=== PATIENT | male | born 1960 | race Caucasian/White ===

== ENCOUNTER 2020-07-23 09:06 | Day surgery (SDC) | payer OTHER ==
[~2020-07-23 09:06] MED LIST: Cefuroxime 10 MG/ML SYRINGE EYELF SCH; Lidocaine 1% PF 2 ML SDV INJECT SCH; Pilocarpine 4% Ophth Soln 15 ML Bot EYELF SCH
[2020-07-23] MEDS: Polymyxin B/Trimethoprim 10 ML Bottle EYELF SCH ×3 (10:12→11:15)
[2020-07-23] MEDS: Brimonidine 0.2% Ophth Soln 5 ML Bottle EYELF SCH ×3 (10:15→11:15)
[2020-07-23] MEDS: Phenylephrine 2.5% Ophth Soln 2 ML Bot EYELF SCH ×5 (10:18→10:53)
[2020-07-23] MEDS: Tropicamide 1% Ophth Soln 15 ML Bottle EYELF SCH ×4 (10:21→10:39)
--- NOTE | 2020-07-23 10:35 | PCM.PREANE ---
Preanesthetic Assessment - Procedure Proposed Procedure: Cataract Extraction with IOL Left Eye - Anesthesia/Transfusion/Family Hx Anesthesia History: Prior Anesthesia Without Reaction Family History of Anesthesia Reaction: No - Review of Systems General: No Symptoms Pulmonary: No Symptoms (Smoker 1 ppd, last cigarette was at 0830) Cardiovascular: No Symptoms Gastrointestinal: No Symptoms Neurological: Headache (Occasional, none today. ) Other: Reports: None - Physical Assessment NPO Status Date: 07/22/20 NPO Status Time: 21:00 Weight: 79.379 kg ASA Class: 2 Mental Status: Alert & Oriented x3 Airway Class: Mallampati = 2 Dentition: Reports: Broken Tooth/Teeth (Poor condition), Missing Tooth/Teeth, Caries Thyro-Mental Finger Breadths: 3 Mouth Opening Finger Breadths: 3 ROM/Head Extension: Full Lungs: Clear to Auscultation, Normal Respiratory Effort Cardiovascular: Regular Rate, Regular Rhythm - Allergies Allergies/Adverse Reactions: Allergies Allergy/AdvReac Type Severity Reaction Status Date / Time No Known Allergies Allergy Verified 07/22/20 15:58 - Acknowledgements Anesthesia Type Planned: MAC Pt an Appropriate Candidate for the Planned Anesthesia: Yes Alternatives and Risks of Anesthesia Discussed w Pt/Guardian: Yes Pt/Guardian Understands and Agrees with Anesthesia Plan: Yes PreAnesthesia Questionnaire - HOME MEDS Home Medications: Home Meds . [No Known Home Meds] 07/22/20 [History] - CURRENT (IN HOUSE) MEDS Current Meds: Current Medications Brimonidine Tartrate (Brimonidine 0.2% Ophth Soln 5 Ml Bottle) 0 ml EYELF ASDIRECTED ANDREW Stop: 07/23/20 18:00 Last Admin: 07/23/20 10:15 Dose: 1 drop Documented by: Cefuroxime Sodium (Cefuroxime 10 Mg/Ml Syringe) 0 mg EYELF ASDIRECTED ANDREW Stop: 07/23/20 18:00 Lidocaine HCl (Lidocaine 1% Pf 2 Ml Sdv) 0 ml INJECT ASDIRECTED ANDREW Stop: 07/23/20 18:00 Phenylephrine HCl (Phenylephrine 2.5% Ophth Soln 2 Ml Bot) 0 ml EYELF ASDIRECTED ANDREW Stop: 07/23/20 18:00 Last Admin: 07/23/20 10:28 Dose: 1 drop Documented by: Pilocarpine HCl (Pilocarpine 4% Ophth Soln 15 Ml Bot) 0 ml EYELF ASDIRECTED ANDREW Stop: 07/23/20 18:00 Polymyxin/Trimethoprim Sulfate (Polymyxin B/Trimethoprim 10 Ml Bottle) 0 ml EYELF ASDIRECTED ANDREW Stop: 07/23/20 18:00 Last Admin: 07/23/20 10:12 Dose: 1 drop Documented by: Tetracaine HCl (Tetracaine Hcl/Pf 0.5% 4 Ml Bottle) 0 ml EYEBOTH ASDIRECTED ANDREW Stop: 07/23/20 18:00 Tropicamide (Tropicamide 1% Ophth Soln 15 Ml Bottle) 0 ml EYELF ASDIRECTED ANDREW Stop: 07/23/20 18:00 Last Admin: 07/23/20 10:31 Dose: 1 drop Documented by:
[2020-07-23] MEDS: Tetracaine HCl/PF 0.5% 4 ML Bottle EYEBOTH SCH ×2 (10:47→11:02)
--- NOTE | 2020-07-23 11:17 | PCM48HPAN ---
Post Anesthesia Note - EVALUATION WITHIN 48HRS OF ANESTHETIC Vital Signs in Normal Range: Yes Patient Participated in Evaluation: Yes Respiratory Function Stable: Yes Airway Patent: Yes Cardiovascular Function Stable: Yes Hydration Status Stable: Yes Pain Control Satisfactory: Yes Nausea and Vomiting Control Satisfactory: Yes Mental Status Recovered: Yes
== END 2020-07-23 11:25 | disposition home or self-care (01) ==
LOC: JD.SDS 09:06
PROVIDERS: ATTEND Ophthalmology
DX: H25.813 Combined forms of age-related cataract, bilateral (principal); H16.103 Unspecified superficial keratitis, bilateral; H16.223 Keratoconjunctivitis sicca, not specified as Sjogren's, bilateral; H02.831 Dermatochalasis of right upper eyelid; H02.834 Dermatochalasis of left upper eyelid; F17.210 Nicotine dependence, cigarettes, uncomplicated
CPT/HCPCS: 66984; C1780; J0697

== ENCOUNTER → 2020-08-20 | Day surgery (SDC) | payer OTHER ==
[~2020-08-20] MED LIST changes: -Cefuroxime 10 MG/ML SYRINGE EYELF SCH; +Cefuroxime 10 MG/ML SYRINGE EYERT SCH; -Pilocarpine 4% Ophth Soln 15 ML Bot EYELF SCH
[2020-08-20] MEDS: Polymyxin B/Trimethoprim 10 ML Bottle EYERT SCH ×4 (10:02→11:44)
[2020-08-20] MEDS: Brimonidine 0.2% Ophth Soln 5 ML Bottle EYERT SCH ×4 (10:09→11:44)
[2020-08-20] MEDS: Phenylephrine 2.5% Ophth Soln 2 ML Bot EYERT SCH ×5 (10:14→11:22)
[2020-08-20] MEDS: Tropicamide 1% Ophth Soln 15 ML Bottle EYERT SCH ×4 (10:20→11:03)
--- NOTE | 2020-08-20 10:58 | PCM.PREANE ---
Preanesthetic Assessment - Procedure Proposed Procedure: Right eye cataract extraction with IOL - Anesthesia/Transfusion/Family Hx Anesthesia History: Prior Anesthesia Without Reaction Family History of Anesthesia Reaction: No Transfusion History: No Prior Transfusion(s) - Review of Systems General: No Symptoms Pulmonary: No Symptoms Cardiovascular: No Symptoms Gastrointestinal: No Symptoms Neurological: No Symptoms Other: Reports: None - Physical Assessment NPO Status Date: 08/19/20 NPO Status Time: 00:00 Height: 1.8 m Weight: 79.379 kg ASA Class: 2 Mental Status: Alert & Oriented x3 Airway Class: Mallampati = 2 Dentition: Reports: Broken Tooth/Teeth, Missing Tooth/Teeth, Caries Thyro-Mental Finger Breadths: 3 Mouth Opening Finger Breadths: 3 ROM/Head Extension: Full Lungs: Clear to Auscultation, Normal Respiratory Effort Cardiovascular: Regular Rate, Regular Rhythm - Allergies Allergies/Adverse Reactions: Allergies Allergy/AdvReac Type Severity Reaction Status Date / Time No Known Allergies Allergy Verified 08/16/20 11:42 - Blood Blood Available: No Product(s) Available: None - Anesthesia Plan Pre-Op Medication Ordered: None - Acknowledgements Anesthesia Type Planned: MAC Pt an Appropriate Candidate for the Planned Anesthesia: Yes Alternatives and Risks of Anesthesia Discussed w Pt/Guardian: Yes Pt/Guardian Understands and Agrees with Anesthesia Plan: Yes PreAnesthesia Questionnaire - SUBSTANCE USE Tobacco Use Status *Q: Current Every Day Tobacco User Tobacco Use Within Last Twelve Months: Cigarettes Second Hand Smoke Exposure: No Days Per Week of Alcohol Use: 1 Number of Drinks Per Day: 5 Total Drinks Per Week: 5 Recreational Drug Use History: Yes Recreational Drug Type: Reports: Marijuana/Hashish - HOME MEDS Home Medications: Home Meds . [No Known Home Meds] 07/22/20 [History] - CURRENT (IN HOUSE) MEDS Current Meds: Current Medications Brimonidine Tartrate (Brimonidine 0.2% Ophth Soln 5 Ml Bottle) 0 ml EYERT ASDIRECTED ANDREW Stop: 08/20/20 18:00 Last Admin: 08/20/20 10:09 Dose: 1 drop Documented by: Cefuroxime Sodium (Cefuroxime 10 Mg/Ml Syringe) 0 mg EYERT ASDIRECTED ANDREW Stop: 08/20/20 18:00 Lidocaine HCl (Lidocaine 1% Pf 2 Ml Sdv) 0 ml INJECT ASDIRECTED ANDREW Stop: 08/20/20 18:00 Phenylephrine HCl (Phenylephrine 2.5% Ophth Soln 2 Ml Bot) 0 ml EYERT DIRECTED ANDREW Stop: 08/20/20 18:00 Last Admin: 08/20/20 10:38 Dose: 1 drop Documented by: Pilocarpine HCl (Pilocarpine 4% Ophth Soln 15 Ml Bot) 0 ml EYERT ASDIRECTED [facility] Stop: 08/20/20 18:00 Polymyxin/Trimethoprim Sulfate (Polymyxin B/Trimethoprim 10 Ml Bottle) 0 ml EYERT ASDIRECTED [facility] Stop: 08/20/20 18:00 Last Admin: 08/20/20 10:48 Dose: 1 drop Documented by: Tetracaine HCl (Tetracaine Hcl/Pf 0.5% 4 Ml Bottle) 0 ml EYEBOTH ASDIRECTED [facility] Stop: 08/20/20 18:00 Tropicamide (Tropicamide 1% Ophth Soln 15 Ml Bottle) 0 ml EYERT ASDIRECTED [facility] Stop: 08/20/20 18:00 Last Admin: 08/20/20 10:43 Dose: 1 drop Documented by:
[2020-08-20] MEDS: Tetracaine HCl/PF 0.5% 4 ML Bottle EYEBOTH SCH ×2 (11:14→11:29)
[2020-08-20] MEDS: Pilocarpine 4% Ophth Soln 15 ML Bot EYERT SCH ×2 (11:33→11:44)
== END ==
LOC: JD.SDS 09:10
PROVIDERS: ATTEND Ophthalmology
DX: H25.811 Combined forms of age-related cataract, right eye (principal); H16.103 Unspecified superficial keratitis, bilateral; H16.223 Keratoconjunctivitis sicca, not specified as Sjogren's, bilateral; H02.834 Dermatochalasis of left upper eyelid; H02.831 Dermatochalasis of right upper eyelid; F17.210 Nicotine dependence, cigarettes, uncomplicated; Z96.1 Presence of intraocular lens
CPT/HCPCS: 66984; J0697; C1780